=== PATIENT | male | born 1940 | race Caucasian/White ===

== ENCOUNTER 2016-10-07 13:48 | Emergency (ER) | payer MEDICARE ==
[~2016-10-07] VITALS: Ht 167.6 cm; Wt 66.8 kg
[~2016-10-07 13:48] MED LIST: FLUT1DIS3 INH; HYDR-3240 PO; PANT40TA3 PO; SENN-25 PO; amlodipine PO
[2016-10-07 13:49] VITALS: BP 156/93
== END 2016-10-07 15:32 | disposition home or self-care (01) ==
LOC: ED 14:20
DX: S40.011A Contusion of right shoulder, initial encounter (principal); W01.0XXA Fall on same level from slipping, tripping and stumbling without subsequent striking against object, initial encounter; Y93.89 Activity, other specified; Y99.8 Other external cause status; Y92.009 Unspecified place in unspecified non-institutional (private) residence as the place of occurrence of the external cause